=== PATIENT | female | born 1935 | race Caucasian/White ===

== ENCOUNTER 2016-05-13 16:03 | Inpatient (IN) | payer MEDICARE, BC ==
[2016-05-13] MEDS ORDERED: ALBUTEROL NEBULIZED 2.5 MG/3 ML INHALATION PRN (22:19)
[2016-05-13] MEDS ORDERED: ACETAMINOPHEN TAB 500 MG TAB PO PRN (22:19)
[2016-05-13] MEDS ORDERED: ONDANSETRON 4 MG TAB PO PRN (22:19)
[2016-05-13] MEDS ORDERED: MAGNESIUM HYDROXIDE 2,400 MG/10 ML CUP PO PRN (22:19)
[2016-05-13] MEDS ORDERED: BISACODYL 10 MG SUPP RECTAL PRN (22:19)
[2016-05-13] MEDS ORDERED: POLYETHYLENE GLYCOL 3350 17 GM POWD.PACK PO PRN (22:19)
[2016-05-13 23:16] LABS: Prothrombin Time 89.6 sec (9.0-12.0)
[2016-05-13 23:19] LABS: INR 8.6 (<1.1)
[2016-05-14] MEDS ORDERED: ALBUTEROL NEBULIZED 2.5 MG/3 ML INHALATION PRN (00:48)
[2016-05-14 04:19] LABS: Appearance,Urine Cloudy (Clear); Bacteria,Urine Occasional /hpf; Bilirubin,Urine Negative (Negative); Glucose,Urine (UA) Negative (Negative); Ketones,Urine Negative (Negative); Leukocyte Esterase,Urine Large (Negative); Mucus,Urine Rare /hpf; Nitrite,Urine Negative (Negative); PH, Urine 5.5 (5.0-8.0); Particle Count 4052; Protein,Urine 1+ (Negative); RBC,Urine 30 /hpf (0-5); Specific Gravity,Urine 1.017 (1.001-1.035); UA Billing (MACRO vs. MICRO) MICRO; Urobilinogen,Urine <2.0 mg/dL (<2.0); WBC,Urine 134 /hpf (0-5)
[2016-05-14 06:34] LABS: Anisocytosis Slight; Basophils % (A) 0 %; CH 23.5; CHCM 30.3; Eosinophils # (A) 0.4 k/uL (0-0.7); Eosinophils % (A) 5 %; HCT 28.4 % (34.0-46.0); HDW 2.85; HGB 8.3 gm/dL (11.4-16.0); Hypochromasia Marked; Luc # (Auto) 0.15; Luc % (Auto) 2; Lymphocytes # (A) 0.5 k/uL (1.0-4.8); Lymphocytes % (A) 7 %; MCH 22.8 pg (25.0-35.0); MCHC 29.4 g/dL (31.0-37.0); MCV 77.8 fL (80.0-100.0); Mean Platelet Volume 7.4; Microcytosis Slight; Monocytes # (A) 0.7 k/uL (0-1.0); Monocytes % (A) 9 %; Neutrophils # (A) 5.8 k/uL (1.3-7.7); Neutrophils % (A) 77 %; RBC 3.65 m/uL (3.80-5.40); RDW 16.6 % (11.5-15.5); WBC 7.5 k/uL (3.8-10.6); WBC (Perox) 7.07
[2016-05-14 06:45] LABS: Anion Gap 12 mmol/L; Blood Urea Nitrogen 23 mg/dL (7-17); Calcium 9.4 mg/dL (8.4-10.2); Carbon Dioxide 22 mmol/L (22-30); Chloride 107 mmol/L (98-107); Glucose 93 mg/dL (74-99); Non-African American GFR(MDRD) >60 (>60 ml/min/1.73 sqM); Potassium 4.2 mmol/L (3.5-5.1); Sodium 141 mmol/L (137-145)
[2016-05-14 06:48] LABS: INR 9.4 (<1.1)
[2016-05-14] MEDS: amLODIPine 5 MG TAB PO SCH (06:58)
[2016-05-14] MEDS: SODIUM CHLORIDE 0.9% 1,000 ML IV SCH ×3 (06:58→23:13)
[2016-05-14] MEDS: LEVOTHYROXINE 100 MCG TAB PO SCH (06:58)
[2016-05-14] MEDS ORDERED: IPRATROPIUM-ALBUTEROL 3 ML NEB INHALATION SCH (09:00)
--- NOTE | 2016-05-14 09:04 | XR ---
EXAMINATION TYPE: XR chest 2V DATE OF EXAM: 05/14/2016 8:50 AM COMPARISON: Prior chest x-ray June 09, 2015 HISTORY: Cough and pneumonia. TECHNIQUE: Frontal and lateral views of the chest are obtained. FINDINGS: Low lung volumes are redemonstrated. Retrocardiac opacity consistent with large hiatal her awa or intrathoracic stomach is again seen. Cardiac silhouette size is stable and felt enlarged with atherosclerotic thoracic aorta. There is interval improvement in right basilar opacity. Some persiste nt left basilar atelectasis and/or infiltrate is difficult to exclude. No large pleural effusion or p neumothorax is seen bilaterally. Osseous structures are demineralized. Exaggerated thoracic kyphosis is noted. IMPRESSION: Low lung volumes and cardiomegaly with large hiatal hernia all redemonstrated, some acut e left basilar atelectasis and/or infiltrate is difficult to exclude.
[2016-05-14] MEDS: IPRATROPIUM-ALBUTEROL 3 ML NEB INHALATION SCH ×2 (09:29→20:26)
[2016-05-14] MEDS ORDERED: PHYTONADIONE 5 MG in SODIUM CHLORIDE 0.9% 50 ML IVPB STA (09:48)
[2016-05-14] MEDS ORDERED: PIPERACILLIN-TAZOBACTAM 3.375 GM in DEXTROSE/WATER 1 50ML.BAG IVPB SCH (10:00)
[2016-05-14] MEDS: LACTOBACILLUS ACIDOPH & BULGAR 1 EACH PACKET PO SCH ×2 (10:08→16:47)
[2016-05-14] MEDS: CARBIDOPA-LEVODOPA 25-100 MG 1 EACH TAB PO SCH ×3 (10:08→21:06)
[2016-05-14] MEDS: MEGESTROL 400 MG/10 ML CUP PO SCH ×2 (10:09→16:47)
[2016-05-14] MEDS: MAGNESIUM OXIDE 400 MG TAB PO SCH (10:09)
[2016-05-14] MEDS: PREGABALIN 50 MG CAP PO SCH ×2 (10:11→21:06)
[2016-05-14] MEDS: SENNOSIDES-DOCUSATE SODIUM 1 EACH TAB PO SCH ×2 (10:11→16:50)
[2016-05-14] MEDS: HYDROcodone/APAP 10-325MG 1 EACH TAB PO PRN ×3 (10:12→21:07)
[2016-05-14] MEDS: POTASSIUM CHLORIDE ER 20 MEQ TAB.ER PO SCH ×2 (10:55→21:06)
[2016-05-14] MEDS: ERTAPENEM 1 GM in SODIUM CHLORIDE 0.9% 50 ML IVPB SCH (11:33)
--- NOTE | 2016-05-14 12:50 | P.CNPUL ---
History of Present Illness Consult date: 05/14/16 Requesting physician: Carolee Tavares Reason for consult: pneumonia Chief complaint: Unknown, patient does not know why she is in the hospital. History of present illness: This is a 80-year-old female with history of multiple medical problems including hypertension, hypothyroidism, Parkinson's disease, polyneuropathy, history of breast cancer and previous right mastectomy, patient was at a resident at [facility], and apparently she was sent to [place] ER with mostly elevated INR/Coumadin related coagulopathy, and she was also noted to have a urinary tract infection and possible sepsis. Apparently the patient was having fevers, upon evaluation in the ER in [place], patient was noted to have urinary tract infection, left lower lobe pneumonia, she was also febrile, her urine revealed evidence of pyuria and bacteriuria, hence arrangements were made for the patient be transferred to [facility]. Patient is a poor historian, however when I asked her about her chief complaint and whether she is complaining of anything, patient felt that she was fine. She had no specific complaints whatsoever. And she had no idea why she was brought to [facility]. Review of Systems ROS unobtainable: due to mental status Past Medical History Past Medical History: Cancer, GERD/Reflux, Hyperlipidemia, Hypertension, Memory Impairment, Neurologic Disorder, Osteoarthritis (OA), Pneumonia, Renal Disease, Skin Disorder, Thyroid Disorder Additional Past Medical History / Comment(s): UTI's sepsis,FEVER, SIRS, HOSPITAL ACQUIRED PNE, SLIGHT MEMORY IMPAIRMENT, R breast ca WITH R MASTECTOMY , DIVERTICULITIS, PNEUMONIA, NECK PAIN, BACK PAIN, RLS ,POLYNEUROPATHY, DJD, MYALGIA AND MYOSITIS. KYPHOSIS, R FOOT DROP.VISION IN RT EYE WORSE THAN LT, sacral wound-wound vac, per [facility] paperwork listed parkinsons on problem list, occ constipation, past anemia. History of Any Multi-Drug Resistant Organisms: ESBL Date of last positivie culture/infection: 06/09/2015 MDRO Source:: urine Past Surgical History: Hernia Repair Additional Past Surgical History / Comment(s): R mastectomy IN 2008, PARTIAL COLECTOMY 2004, VENOUS STRIPPING, COLONOSCOPY, ,CATARACT EXTRACTION AND LENS IMPLANTS. Past Anesthesia/Blood Transfusion Reactions: No Reported Reaction Additional Past Anesthesia/Blood Transfusion Reaction / Comment(s): PT STATES SHE HAS NEVER RECIEVED BLOOD. Past Psychological History: No Psychological Hx Reported Additional Psychological History / Comment(s): pt currently at [facility]. STATES HER LEGS ARE WEAK. wouind vac to sacral wound. Smoking Status: Never smoker Past Alcohol Use History: None Reported Past Drug Use History: None Reported - Past Family History Father Family Medical History: Unable to Obtain Additional Family Medical History / Comment(s): PT STATES SHE NEVER KNEW HER FATHER. Mother Family Medical History: Diabetes Mellitus Medications and Allergies Home Medications Medication Instructions Recorded Confirmed Type Levothyroxine Sodium [Synthroid] 100 mcg PO DAILY@0600 03/16/14 05/13/16 History Sennosides-Docusate Sodium 1 tab PO BID@0900,1700 02/27/15 05/13/16 History [Senokot-S] Pregabalin [Lyrica] 50 mg PO BID@0900,2100 05/21/15 05/13/16 History Ipratropium-Albuterol Nebulize 3 ml INHALATION RT-BID@0900,1700 06/08/15 History [Duoneb 0.5 mg-3 mg/3 ml Soln] Lactobacillus Capsule 1 cap PO BID@0900,1700 06/08/15 05/13/16 History Acetaminophen Tab [Tylenol Tab] 500 mg PO Q6H PRN 05/13/16 05/13/16 History Albuterol Nebulized [Ventolin 2.5 mg INHALATION RT-Q8H PRN 05/13/16 05/13/16 History Nebulized] Anastrozole [Arimidex] 1 mg PO DAILY@1300 05/13/16 05/13/16 History Bisacodyl [Dulcolax] 10 mg RECTAL DAILY PRN 05/13/16 05/13/16 History Carbidopa-Levodopa 25-100 mg 1 tab PO TID@0900,1300,209905/13/16 05/13/16 History [Sinemet 25-100] Citalopram Hydrobromide [CeleXA] 10 mg PO HS@209905/13/16 05/13/16 History HYDROcodone/APAP 10-325MG [[place] 1 tab PO TID@0600,1300,209905/13/16 05/13/16 History 10-325] Losartan Potassium 100 mg PO DAILY@1300 05/13/16 05/13/16 History Magnesium Hydroxide [Milk of 2,400 mg PO DAILY PRN 05/13/16 05/13/16 History Magnesia] Magnesium Oxide [Mag-Ox] 400 mg PO DAILY@0900 05/13/16 05/13/16 History Megestrol [Megace] 200 mg PO BID@0900,1700 05/13/16 05/13/16 History Metolazone [Zaroxolyn] 2.5 mg PO DAILY@1700 05/13/16 05/13/16 History Ondansetron [Zofran] 4 mg PO Q8H PRN 05/13/16 05/13/16 History Polyethylene Glycol 3350 [Miralax] 17 gm PO DAILY@0900 05/13/16 05/13/16 History Potassium Chloride ER [K-Dur 10] 20 meq PO BID@0900,2100 05/13/16 05/13/16 History Warfarin [Coumadin] 3 mg PO HS@2100 05/13/16 05/13/16 History amLODIPine [Norvasc] 5 mg PO DAILY@0600 05/13/16 05/13/16 History Allergies Allergy/AdvReac Type Severity Reaction Status Date / Time No Known Allergies Allergy Verified 05/13/16 20:20 Physical Exam Vitals: Vital Signs Temp Pulse Pulse Resp BP Pulse Ox 05/14/16 11:15 100.6 F H 103 H 20 140/76 97 05/14/16 10:56 101.4 F H 105 H 148/77 97 05/14/16 09:40 88 05/14/16 09:30 88 05/14/16 09:00 22 05/14/16 08:45 95 22 05/14/16 08:00 99.5 F 95 22 146/70 97 05/14/16 05:51 82 18 97 05/14/16 00:00 84 18 125/63 97 05/13/16 20:00 98.7 F 84 18 104/55 98 Intake and Output 05/13/16 05/14/16 05/14/16 22:59 06:59 14:59 Intake Total 850 Output Total 110 600 Balance -110 250 Intake: IV 850 Phytonadione 5 mg In 50 Sodium Chloride 0.9% 50 ml @ 100 mls/hr IVPB ONCE STA Rx#:[id number] Sodium Chloride 0.9% 1, 800 000 ml @ 75 mls/hr IV . [id number] [facility] Rx#:[id number] Output: Urine 110 600 Other: Voiding Method Indwelling Catheter Indwelling Catheter Indwelling Catheter Weight 64.5 kg 62 kg 62 kg Patient Weight 05/15/16 06:59 Weight 62 kg Physical Exam: Revealed a 80-year-old female in no distress HEENT:[Neck is supple.] [No neck masses.] [No thyromegaly.] [No JVD.] Chest: [Minimal crackles at the bases bilaterally more so at the left base] Cardiac Exam: [Normal S1 and S2, no S3 gallop, no murmur.] Abdomen: [Soft, nontender, no megaly, no rebound, no guarding, normal bowel sounds.] Extremities: [No clubbing, no edema, no cyanosis.] Patient has a stage III decubitus ulcer in the right sacroiliac area. Neurological Exam: Confused otherwise no focal neurologic deficit Results - Laboratory Findings CBC and BMP: 05/14/16 06:04 05/14/16 06:04 PT/INR, D-dimer PT 99.0 sec (9.0-12.0) H 05/14/16 06:04 INR 9.4 (<1.1) H* 05/14/16 06:04 Abnormal lab findings: Abnormal Labs 05/13/16 05/14/16 05/14/16 22:40 02:39 06:04 RBC 3.65 L Hgb 8.3 L Hct 28.4 L MCV 77.8 L MCH 22.8 L MCHC 29.4 L RDW 16.6 H Lymphocytes # 0.5 L PT 89.6 H INR 8.6 H* BUN Urine Appearance Cloudy H Urine Protein 1+ H Urine Blood Moderate H Ur Leukocyte Esterase Large H Urine RBC 30 H Urine WBC 134 H Urine Bacteria Occasional H Urine Mucus Rare H 05/14/16 05/14/16 06:04 06:04 RBC Hgb Hct MCV MCH MCHC RDW Lymphocytes # PT 99.0 H INR 9.4 H* BUN 23 H Urine Appearance Urine Protein Urine Blood Ur Leukocyte Esterase Urine RBC Urine WBC Urine Bacteria Urine Mucus - Diagnostic Findings Chest x-ray: image reviewed (Evidence of left lower lobe atelectasis, possible pneumonia, and evidence of a hiatal hernia.) Assessment and Plan Plan: Impression: 1 bi basilar pneumonia, possible gram-negative, and possible sepsis. 2 acute urinary tract infection, possible sepsis 3 history of multiple comorbidities including hypertension, arcus disease, history of breast cancer and previous right mastectomy, history of hypothyroidism, polyneuropathy, hiatal hernia, medical debility and generalized weakness and history of osteoporosis kyphosis scoliosis and history of chronic sacral iliac decubitus ulcer. Recommendation: Agree with the present course of treatment including updrafts, ertapenem, await final report on her cultures including blood and urine cultures. We'll continue to follow. Time with Patient: Greater than 30
--- NOTE | 2016-05-14 13:06 | P.HPIM ---
History of Present Illness H&P Date: 05/14/16 Chief Complaint: Mental status changes This is a 80-year-old female patient of Dr. Mohr with a previous medical history significant for hypertension and hypertensive cardiovascular disease, hyperlipidemia, hypothyroidism, parkinsonism, polyneuropathy, history of breast cancer status post right mastectomy. She is currently residing at [facility]. She was sent in to the hospital for evaluation of lethargy and weakness. She had a urinalysis done that was leukoesterase large and bacteria moderate. She was given ciprofloxacin and ceftriaxone and transferred to [facility]. Patient was initially admitted under the care of Dr. riveraion has been transferred to our service. Patient is also noted to have stage III decubitus ulcer in the right buttocks area with tunneling that was present on admission. INR is at 9.4 and patient will be ordered vitamin K. Lactic acid 1.1. Temperature max is 101.4. Previous urine culture was positive for E. coli, ESBL and patient has been started on ertapenem and consult with Dr. Ramirez. Review of Systems All systems: negative Constitutional: Reports chills, Reports fatigue, Reports fever, Reports lethargy , Reports poor appetite, Reports weakness Eyes: denies blurred vision, denies pain Ears, nose, mouth and throat: Denies headache, Denies sore throat Cardiovascular: Denies chest pain, Denies shortness of breath Respiratory: Denies cough Gastrointestinal: Denies abdominal pain, Denies diarrhea, Denies nausea, Denies vomiting Genitourinary: Denies dysuria, Denies hematuria Musculoskeletal: Denies myalgias Integumentary: Denies pruritus, Denies rash Neurological: Reports confusion, Denies numbness, Denies weakness Psychiatric: Denies anxiety, Denies depression Endocrine: Denies fatigue, Denies weight change Past Medical History Past Medical History: Cancer, GERD/Reflux, Hyperlipidemia, Hypertension, Memory Impairment, Neurologic Disorder, Osteoarthritis (OA), Pneumonia, Renal Disease, Skin Disorder, Thyroid Disorder Additional Past Medical History / Comment(s): UTI's sepsis,FEVER, SIRS, HOSPITAL ACQUIRED PNE, SLIGHT MEMORY IMPAIRMENT, R breast ca WITH R MASTECTOMY , DIVERTICULITIS, PNEUMONIA, NECK PAIN, BACK PAIN, RLS ,POLYNEUROPATHY, DJD, MYALGIA AND MYOSITIS. KYPHOSIS, R FOOT DROP.VISION IN RT EYE WORSE THAN LT, sacral wound-wound vac, per f paperwork listed parkinsons on problem list, occ constipation, past anemia. History of Any Multi-Drug Resistant Organisms: ESBL Date of last positivie culture/infection: 06/09/2015 MDRO Source:: urine Past Surgical History: Hernia Repair Additional Past Surgical History / Comment(s): R mastectomy IN 2008, PARTIAL COLECTOMY 2004, VENOUS STRIPPING, COLONOSCOPY, ,CATARACT EXTRACTION AND LENS IMPLANTS. Past Anesthesia/Blood Transfusion Reactions: No Reported Reaction Additional Past Anesthesia/Blood Transfusion Reaction / Comment(s): PT STATES SHE HAS NEVER RECIEVED BLOOD. Past Psychological History: No Psychological Hx Reported Additional Psychological History / Comment(s): pt currently at [facility]. STATES HER LEGS ARE WEAK. wouind vac to sacral wound. Smoking Status: Never smoker Past Alcohol Use History: None Reported Past Drug Use History: None Reported - Past Family History Father Family Medical History: Unable to Obtain Additional Family Medical History / Comment(s): PT STATES SHE NEVER KNEW HER FATHER. Mother Family Medical History: Diabetes Mellitus Medications and Allergies Home Medications Medication Instructions Recorded Confirmed Type Levothyroxine Sodium [Synthroid] 100 mcg PO DAILY@0600 03/16/14 05/13/16 History Sennosides-Docusate Sodium 1 tab PO BID@0900,1700 02/27/15 05/13/16 History [Senokot-S] Pregabalin [Lyrica] 50 mg PO BID@0900,2100 05/21/15 05/13/16 History Ipratropium-Albuterol Nebulize 3 ml INHALATION RT-BID@0900,1700 06/08/15 History [Duoneb 0.5 mg-3 mg/3 ml Soln] Lactobacillus Capsule 1 cap PO BID@0900,1700 06/08/15 05/13/16 History Acetaminophen Tab [Tylenol Tab] 500 mg PO Q6H PRN 05/13/16 05/13/16 History Albuterol Nebulized [Ventolin 2.5 mg INHALATION RT-Q8H PRN 05/13/16 05/13/16 History Nebulized] Anastrozole [Arimidex] 1 mg PO DAILY@1300 05/13/16 05/13/16 History Bisacodyl [Dulcolax] 10 mg RECTAL DAILY PRN 05/13/16 05/13/16 History Carbidopa-Levodopa 25-100 mg 1 tab PO TID@0900,1300,209905/13/16 05/13/16 History [Sinemet 25-100] Citalopram Hydrobromide [CeleXA] 10 mg PO HS@209905/13/16 05/13/16 History HYDROcodone/APAP 10-325MG [[place] 1 tab PO TID@0600,1300,209905/13/16 05/13/16 History 10-325] Losartan Potassium 100 mg PO DAILY@1300 05/13/16 05/13/16 History Magnesium Hydroxide [Milk of 2,400 mg PO DAILY PRN 05/13/16 05/13/16 History Magnesia] Magnesium Oxide [Mag-Ox] 400 mg PO DAILY@0900 05/13/16 05/13/16 History Megestrol [Megace] 200 mg PO BID@0900,1700 05/13/16 05/13/16 History Metolazone [Zaroxolyn] 2.5 mg PO DAILY@1700 05/13/16 05/13/16 History Ondansetron [Zofran] 4 mg PO Q8H PRN 05/13/16 05/13/16 History Polyethylene Glycol 3350 [Miralax] 17 gm PO DAILY@0900 05/13/16 05/13/16 History Potassium Chloride ER [K-Dur 10] 20 meq PO BID@0900,2100 05/13/16 05/13/16 History Warfarin [Coumadin] 3 mg PO HS@209905/13/16 05/13/16 History amLODIPine [Norvasc] 5 mg PO DAILY@0600 05/13/16 05/13/16 History Allergies Allergy/AdvReac Type Severity Reaction Status Date / Time No Known Allergies Allergy Verified 05/13/16 20:20 Physical Exam Vitals: Vital Signs Temp Pulse Pulse Resp BP Pulse Ox 05/14/16 10:56 101.4 F H 105 H 148/77 97 05/14/16 09:40 88 05/14/16 09:30 88 05/14/16 09:00 22 05/14/16 08:00 99.5 F 95 22 146/70 97 05/14/16 05:51 82 18 97 05/14/16 00:00 84 18 125/63 97 05/13/16 20:00 98.7 F 84 18 104/55 98 Intake and Output 05/13/16 05/14/16 05/14/16 22:59 06:59 14:59 Output Total 110 Balance -110 Output: Urine 110 Other: Voiding Method Indwelling Catheter Indwelling Catheter Indwelling Catheter Weight 64.5 kg 62 kg 62 kg Patient Weight 05/15/16 06:59 Weight 62 kg General appearance: average body habitus, mild distress - EENT Eyes: Reports anicteric sclerae, Reports EOMI, Reports PERRLA, Reports normal apperance, Denies photophobia, Denies ptosis ENT: Reports hard of hearing, Reports NA/AT, Reports normal oropharynx, Denies thrush, Denies tonsillar exudates, Denies tonsillar swelling Ears: bilateral: normal, negative: bulging - Neck Neck: Reports normal ROM, Reports rigidity, Denies lymphadenopathy, Denies stridor, Denies thyromegaly Carotids: bilateral: upstroke delayed Thyroid: bilateral: normal size - Respiratory Respiratory: bilateral: diminished, dullness, rhonchi, negative: wheezing, prolonged expiration - Cardiovascular Rhythm: regular Heart sounds: normal: S1, S2 Abnormal Heart Sounds: Reports systolic murmur, Denies rub, Denies S3 Gallop, Denies S4 Gallop, Denies click - Gastrointestinal General gastrointestinal: Reports normal bowel sounds, Reports soft, Denies splenomegaly, Denies tenderness, Denies umbilical hernia, Denies ventral hernia - Integumentary Integumentary: Reports normal, Reports normal turgor, Denies rash, Denies ulcer - Neurologic Neurologic: CNII-XII intact - Musculoskeletal Musculoskeletal: Reports generalized weakness, Reports strength equal bilaterally - Psychiatric Psychiatric: Reports A&O x's 3, Reports appropriate affect, Reports intact judgment & insight Results CBC & Chem 7: 05/14/16 06:04 05/14/16 06:04 Labs: Abnormal Lab Results - Last 24 Hours (Table) 05/13/16 05/14/16 05/14/16 Range/Units 22:40 02:39 06:04 RBC 3.65 L (3.80-5.40) m/uL Hgb 8.3 L (11.4-16.0) gm/dL Hct 28.4 L (34.0-46.0) % MCV 77.8 L (80.0-100.0) fL MCH 22.8 L (25.0-35.0) pg MCHC 29.4 L (31.0-37.0) g/dL RDW 16.6 H (11.5-15.5) % Lymphocytes # 0.5 L (1.0-4.8) k/uL PT 89.6 H (9.0-12.0) sec INR 8.6 H* (<1.1) BUN (7-17) mg/dL Urine Appearance Cloudy H (Clear) Urine Protein 1+ H (Negative) Urine Blood Moderate H (Negative) Ur Leukocyte Esterase Large H (Negative) Urine RBC 30 H (0-5) /hpf Urine WBC 134 H (0-5) /hpf Urine Bacteria Occasional H (None) /hpf Urine Mucus Rare H (None) /hpf 05/14/16 05/14/16 Range/Units 06:04 06:04 RBC (3.80-5.40) m/uL Hgb (11.4-16.0) gm/dL Hct (34.0-46.0) % MCV (80.0-100.0) fL MCH (25.0-35.0) pg MCHC (31.0-37.0) g/dL RDW (11.5-15.5) % Lymphocytes # (1.0-4.8) k/uL PT 99.0 H (9.0-12.0) sec INR 9.4 H* (<1.1) BUN 23 H (7-17) mg/dL Urine Appearance (Clear) Urine Protein (Negative) Urine Blood (Negative) Ur Leukocyte Esterase (Negative) Urine RBC (0-5) /hpf Urine WBC (0-5) /hpf Urine Bacteria (None) /hpf Urine Mucus (None) /hpf Thrombosis Risk Factor Assmnt - DVT/VTE Prophylaxis DVT/VTE Prophylaxis: Pharmacologic Prophylaxis ordered - Choose All That Apply Any of the Below Risk Factors Present?: Yes Each Factor Represents 1 point: Sepsis (< 1month) Other Risk Factors: Yes Each Risk Factor Represents 2 Points: Malignancy Each Risk Factor Represents 3 Points: Age 75 years or older Other congenital or acquired thrombophilia - If yes, enter type in comment: No Thrombosis Risk Factor Assessment Total Risk Factor Score: 6 Thrombosis Risk Factor Assessment Level: High Risk Assessment and Plan Plan: 1. Sepsis and urinary tract infection presenting with weakness and lethargy, fever, coagulopathy and metabolic encephalopathy. Patient has been started on ertapenem. Consult with Dr. Ramirez. Await urine culture report. Blood culture has status received. 2. Coagulopathy secondary to combination of Coumadin and sepsis. Patient is status post vitamin K. Recheck INR this afternoon. Coumadin on hold. 3. Anemia of chronic disease. Currently stable. 4. Hypertension and hypertensive cardiovascular disease. Continue losartan 100 mg daily, Norvasc 5 mg daily. 5. Parkinsonism. Continue Sinemet one 3 times daily. 6. History of breast cancer status post right mastectomy. Continue Arimidex 1 mg orally once every day. 7. Hypothyroidism. Continue Synthroid 100 g orally once every day. 8. Bilateral polyneuropathy. Continue Lyrica 50 mg orally twice every day. 9. Osteoporosis/kyphosis with scoliosis. Start [place] 7.5/325 mg 1 tablet every 6 hours as needed. 11. Stage III decubitus ulcer on the right buttocks with tunneling, present on admission. Consult with Dr. Ramirez. 12. DVT prophylaxis. Coumadin on hold. 13. GI prophylaxis. Continue Pepcid. Patient will be admitted to the hospital for a minimum 3 night stay. Discharge plan: Return to [facility] Impression and plan of care have been directed as dictated by the signing physician. Selene Chan nurse practitioner acting as scribe for signing physician. Time with Patient: Greater than 30
--- NOTE | 2016-05-14 13:19 | P.CONS ---
History of Present Illness - Reason for Consult Consult date: 05/14/16 UTI, Sepsis - History of Present Illness This is a 80-year-old female currently residing at [facility]. She was sent in to the hospital for evaluation of lethargy and weakness. She had a urinalysis done that was leukoesterase large and bacteria moderate. Chest x-ray showed left lower lobe pneumonia. CAT scan of the brain was negative. She was given ciprofloxacin and ceftriaxone and transferred to [facility]. Patient was initially admitted under the care of Dr. riveraion has been transferred to our service. Patient is also noted to have stage III decubitus ulcer in the right buttocks area with tunneling that was present on admission. INR is at 9.4 and patient received vitamin K. Lactic acid 1.1. Temperature max is 101.4. Previous urine culture was positive for E. coli, ESBL and patient on ertapenem. Dr. Sutton is on consult. Review of Systems All systems: negative Constitutional: Reports chills, Reports fatigue, Reports fever, Reports lethargy , Reports weakness Eyes: denies blurred vision, denies pain Ears, nose, mouth and throat: Denies headache, Denies sore throat Cardiovascular: Denies chest pain, Denies shortness of breath Respiratory: Denies cough Gastrointestinal: Denies abdominal pain, Denies diarrhea, Denies nausea, Denies vomiting Genitourinary: Denies dysuria, Denies hematuria Musculoskeletal: Denies myalgias Integumentary: Denies pruritus, Denies rash Neurological: Denies numbness, Denies weakness Psychiatric: Reports confusion, Denies anxiety, Denies depression Endocrine: Denies fatigue, Denies weight change Past Medical History Past Medical History: Cancer, GERD/Reflux, Hyperlipidemia, Hypertension, Memory Impairment, Neurologic Disorder, Osteoarthritis (OA), Pneumonia, Renal Disease, Skin Disorder, Thyroid Disorder Additional Past Medical History / Comment(s): UTI's sepsis,FEVER, SIRS, HOSPITAL ACQUIRED PNE, SLIGHT MEMORY IMPAIRMENT, R breast ca WITH R MASTECTOMY , DIVERTICULITIS, PNEUMONIA, NECK PAIN, BACK PAIN, RLS ,POLYNEUROPATHY, DJD, MYALGIA AND MYOSITIS. KYPHOSIS, R FOOT DROP.VISION IN RT EYE WORSE THAN LT, sacral wound-wound vac, per [facility] paperwork listed parkinsons on problem list, occ constipation, past anemia. History of Any Multi-Drug Resistant Organisms: ESBL Year Discovered:: 06/09/2015 MDRO Source:: urine Past Surgical History: Hernia Repair Additional Past Surgical History / Comment(s): R mastectomy IN 2008, PARTIAL COLECTOMY 2004, VENOUS STRIPPING, COLONOSCOPY, ,CATARACT EXTRACTION AND LENS IMPLANTS. Past Anesthesia/Blood Transfusion Reactions: No Reported Reaction Additional Past Anesthesia/Blood Transfusion Reaction / Comm: PT STATES SHE HAS NEVER RECIEVED BLOOD. Past Psychological History: No Psychological Hx Reported Additional Psychological History / Comment(s): [facility] STATES HER LEGS ARE WEAK. wouind vac to sacral wound. Smoking Status: Never smoker Past Alcohol Use History: None Reported Past Drug Use History: None Reported - Past Family History Father Family Medical History: Unable to Obtain Additional Family Medical History / Comment(s): PT STATES SHE NEVER KNEW HER FATHER. Mother Family Medical History: Diabetes Mellitus Medications and Allergies Home Medications Medication Instructions Recorded Confirmed Type Levothyroxine Sodium [Synthroid] 100 mcg PO DAILY@0600 03/16/14 05/13/16 History Sennosides-Docusate Sodium 1 tab PO BID@0900,1700 02/27/15 05/13/16 History [Senokot-S] Pregabalin [Lyrica] 50 mg PO BID@0900,2100 05/21/15 05/13/16 History Ipratropium-Albuterol Nebulize 3 ml INHALATION RT-BID@0900,1700 06/08/15 History [Duoneb 0.5 mg-3 mg/3 ml Soln] Lactobacillus Capsule 1 cap PO BID@0900,1700 06/08/15 05/13/16 History Acetaminophen Tab [Tylenol Tab] 500 mg PO Q6H PRN 05/13/16 05/13/16 History Albuterol Nebulized [Ventolin 2.5 mg INHALATION RT-Q8H PRN 05/13/16 05/13/16 History Nebulized] Anastrozole [Arimidex] 1 mg PO DAILY@1300 05/13/16 05/13/16 History Bisacodyl [Dulcolax] 10 mg RECTAL DAILY PRN 05/13/16 05/13/16 History Carbidopa-Levodopa 25-100 mg 1 tab PO TID@0900,1300,2100 05/13/16 05/13/16 History [Sinemet 25-100] Citalopram Hydrobromide [CeleXA] 10 mg PO HS@2100 05/13/16 05/13/16 History HYDROcodone/APAP 10-325MG [[place] 1 tab PO TID@0600,1300,2100 05/13/16 05/13/16 History 10-325] Losartan Potassium 100 mg PO DAILY@1300 05/13/16 05/13/16 History Magnesium Hydroxide [Milk of 2,400 mg PO DAILY PRN 05/13/16 05/13/16 History Magnesia] Magnesium Oxide [Mag-Ox] 400 mg PO DAILY@0900 05/13/16 05/13/16 History Megestrol [Megace] 200 mg PO BID@0900,1700 05/13/16 05/13/16 History Metolazone [Zaroxolyn] 2.5 mg PO DAILY@1700 05/13/16 05/13/16 History Ondansetron [Zofran] 4 mg PO Q8H PRN 05/13/16 05/13/16 History Polyethylene Glycol 3350 [Miralax] 17 gm PO DAILY@0900 05/13/16 05/13/16 History Potassium Chloride ER [K-Dur 10] 20 meq PO BID@0900,2100 05/13/16 05/13/16 History Warfarin [Coumadin] 3 mg PO HS@2100 05/13/16 05/13/16 History amLODIPine [Norvasc] 5 mg PO DAILY@0600 05/13/16 05/13/16 History Allergies Allergy/AdvReac Type Severity Reaction Status Date / Time No Known Allergies Allergy Verified 05/13/16 20:20 Physical Exam Vitals: Vital Signs Temp Pulse Pulse Resp BP Pulse Ox 05/14/16 10:56 101.4 F H 105 H 148/77 97 05/14/16 09:40 88 05/14/16 09:30 88 05/14/16 09:00 22 05/14/16 08:00 99.5 F 95 22 146/70 97 05/14/16 05:51 82 18 97 05/14/16 00:00 84 18 125/63 97 05/13/16 20:00 98.7 F 84 18 104/55 98 Intake and Output 05/13/16 05/14/16 05/14/16 22:59 06:59 14:59 Output Total 110 Balance -110 Output: Urine 110 Other: Voiding Method Indwelling Catheter Indwelling Catheter Indwelling Catheter Weight 64.5 kg 62 kg 62 kg Patient Weight 05/15/16 06:59 Weight 62 kg Gen: This is a 80-year-old female. She appears to be in no acute distress.. HEENT: Head is atraumatic, normocephalic. Pupils equal, round. Sclerae is anicteric. NECK: Supple. No JVD. No lymphadenopathy. No thyromegaly. LUNGS: Crackles in the bases. No intercostal retractions. HEART: Regular rate and rhythm. Systolic murmur. ABDOMEN: Soft. Bowel sounds are present. No masses. No tenderness. Oneil catheter in place. SKIN: Stage III possible stage IV decubitus ulcer right buttocks/back area. EXTREMITIES: No pedal edema. No calf tenderness. NEUROLOGICAL: Patient is awake, alert and oriented x2 with mild confusion. No focal neural deficits. Results Results: Laboratory Results WBC 7.5 k/uL (3.8-10.6) 05/14/16 06:04 RBC 3.65 m/uL (3.80-5.40) L 05/14/16 06:04 Hgb 8.3 gm/dL (11.4-16.0) L 05/14/16 06:04 Hct 28.4 % (34.0-46.0) L 05/14/16 06:04 MCV 77.8 fL (80.0-100.0) L 05/14/16 06:04 MCH 22.8 pg (25.0-35.0) L 05/14/16 06:04 MCHC 29.4 g/dL (31.0-37.0) L 05/14/16 06:04 RDW 16.6 % (11.5-15.5) H 05/14/16 06:04 Plt Count 431 k/uL (150-450) 05/14/16 06:04 Neutrophils % 77 % 05/14/16 06:04 Lymphocytes % 7 % 05/14/16 06:04 Monocytes % 9 % 05/14/16 06:04 Eosinophils % 5 % 05/14/16 06:04 Basophils % 0 % 05/14/16 06:04 Neutrophils # 5.8 k/uL (1.3-7.7) 05/14/16 06:04 Lymphocytes # 0.5 k/uL (1.0-4.8) L 05/14/16 06:04 Monocytes # 0.7 k/uL (0-1.0) 05/14/16 06:04 Eosinophils # 0.4 k/uL (0-0.7) 05/14/16 06:04 Basophils # 0.0 k/uL (0-0.2) 05/14/16 06:04 Hypochromasia Marked 05/14/16 06:04 Anisocytosis Slight 05/14/16 06:04 Microcytosis Slight 05/14/16 06:04 PT 99.0 sec (9.0-12.0) H 05/14/16 06:04 INR 9.4 (<1.1) H* 05/14/16 06:04 Sodium 141 mmol/L (137-145) 05/14/16 06:04 Potassium 4.2 mmol/L (3.5-5.1) 05/14/16 06:04 Chloride 107 mmol/L (98-107) 05/14/16 06:04 Carbon Dioxide 22 mmol/L (22-30) 05/14/16 06:04 Anion Gap 12 mmol/L 05/14/16 06:04 BUN 23 mg/dL (7-17) H 05/14/16 06:04 Creatinine 0.70 mg/dL (0.52-1.04) 05/14/16 06:04 Est GFR (MDRD) Af Amer >60 (>60 ml/min/1.73 sqM) 05/14/16 06:04 Est GFR (MDRD) Non-Af >60 (>60 ml/min/1.73 sqM) 05/14/16 06:04 Glucose 93 mg/dL (74-99) 05/14/16 06:04 Plasma Lactic Acid [place] 1.1 mmol/L (0.7-2.0) 05/14/16 11:23 Calcium 9.4 mg/dL (8.4-10.2) 05/14/16 06:04 Magnesium 1.8 mg/dL (1.6-2.3) 05/14/16 06:04 Urine Color Yellow 05/14/16 02:39 Urine Appearance Cloudy (Clear) H 05/14/16 02:39 Urine pH 5.5 (5.0-8.0) 05/14/16 02:39 Ur Specific [place] 1.017 (1.001-1.035) 05/14/16 02:39 Urine Protein 1+ (Negative) H 05/14/16 02:39 Urine Glucose (UA) Negative (Negative) 05/14/16 02:39 Urine Ketones Negative (Negative) 05/14/16 02:39 Urine Blood Moderate (Negative) H 05/14/16 02:39 Urine Nitrate Negative (Negative) 05/14/16 02:39 Urine Bilirubin Negative (Negative) 05/14/16 02:39 Urine Urobilinogen <2.0 mg/dL (<2.0) 05/14/16 02:39 Ur Leukocyte Esterase Large (Negative) H 05/14/16 02:39 Urine RBC 30 /hpf (0-5) H 05/14/16 02:39 Urine WBC 134 /hpf (0-5) H 05/14/16 02:39 Urine Bacteria Occasional /hpf (None) H 05/14/16 02:39 Urine Mucus Rare /hpf (None) H 05/14/16 02:39 CBC & Chem 7: 05/15/16 06:38 05/15/16 06:38 Labs: Abnormal Lab Results - Last 24 Hours (Table) 05/13/16 05/14/16 05/14/16 Range/Units 22:40 02:39 06:04 RBC 3.65 L (3.80-5.40) m/uL Hgb 8.3 L (11.4-16.0) gm/dL Hct 28.4 L (34.0-46.0) % MCV 77.8 L (80.0-100.0) fL MCH 22.8 L (25.0-35.0) pg MCHC 29.4 L (31.0-37.0) g/dL RDW 16.6 H (11.5-15.5) % Lymphocytes # 0.5 L (1.0-4.8) k/uL PT 89.6 H (9.0-12.0) sec INR 8.6 H* (<1.1) BUN (7-17) mg/dL Urine Appearance Cloudy H (Clear) Urine Protein 1+ H (Negative) Urine Blood Moderate H (Negative) Ur Leukocyte Esterase Large H (Negative) Urine RBC 30 H (0-5) /hpf Urine WBC 134 H (0-5) /hpf Urine Bacteria Occasional H (None) /hpf Urine Mucus Rare H (None) /hpf 05/14/16 05/14/16 Range/Units 06:04 06:04 RBC (3.80-5.40) m/uL Hgb (11.4-16.0) gm/dL Hct (34.0-46.0) % MCV (80.0-100.0) fL MCH (25.0-35.0) pg MCHC (31.0-37.0) g/dL RDW (11.5-15.5) % Lymphocytes # (1.0-4.8) k/uL PT 99.0 H (9.0-12.0) sec INR 9.4 H* (<1.1) BUN 23 H (7-17) mg/dL Urine Appearance (Clear) Urine Protein (Negative) Urine Blood (Negative) Ur Leukocyte Esterase (Negative) Urine RBC (0-5) /hpf Urine WBC (0-5) /hpf Urine Bacteria (None) /hpf Urine Mucus (None) /hpf Assessment and Plan Plan: This is a 80-year-old female who presented to the hospital signs of sepsis secondary to urinary tract infection and left lower lobe pneumonia. We do have previous urine culture with E. coli, ESBL. Patient is on ertapenem which will be continued. Regarding the stage III decubitus ulcer, local wound care will be addressed. Continue supportive care. Further recommendations as patient progresses. The above dictated assessment and findings were discussed with Dr. Ramirez. The impression and plan of care have been directed as dictated. Selene Chan nurse practitioner acting as scribe for Dr. Ramirez. Time with Patient: Greater than 30
[2016-05-14] MEDS: ANASTROZOLE 1 MG TAB PO SCH (13:58)
[2016-05-14 15:45] LABS: INR 2.2 (<1.1); Prothrombin Time 21.6 sec (9.0-12.0)
[2016-05-14] MEDS: LOSARTAN 50 MG TAB PO SCH (15:47)
[2016-05-14] MEDS: METOLAZONE 2.5 MG TAB PO SCH (16:47)
[2016-05-14] MEDS: CITALOPRAM HYDROBROMIDE 10 MG TAB PO SCH (21:06)
--- NOTE | 2016-05-14 21:19 | P.CON ---
Consult Note - . Consult date: 05/14/16 Assessment/Plan:: This is a 80-year-old female currently residing at [facility]. She was sent in to the hospital for evaluation of lethargy and weakness. She had a urinalysis done that was leukoesterase large and bacteria moderate. Chest x-ray showed left lower lobe pneumonia. CAT scan of the brain was negative. She was given ciprofloxacin and ceftriaxone and transferred to [facility]. Patient was initially admitted under the care of percussion has been transferred to our service. Patient is also noted to have stage III decubitus ulcer in the right buttocks area with tunneling that was present on admission. INR is at 9.4 and patient received vitamin K. Lactic acid 1.1. Temperature max is 101.4. Previous urine culture was positive for E. coli, ESBL and patient on ertapenem. Dr. Sutton is on consult. Please see the consult note as dictated by nurse practitioner Mrs. Selene Chan. It is noted patient has evidence of the extensive ulceration which is a pressure ulceration of her back. There is extensive tunneling is noted per the nursing photography and measurements. There is rae necrosis and older. With all this being present and wound VAC is not appropriate this time. Less for surgical consultation and debridements to the area. Once infection slough and improved she would then be a candidate for the negative pressure therapy system again. She is oriented air mattress overlay. We'll need to have nutritional status maximized. Pain control seems to be adequate at this point in time. Is evidence of the ESBL in her urine for which ertapenem is being utilized which is also adequate choice for the ulceration of her back especially since data so far does not indicate that she has evidence of MRSA. Culture further help direct antibiotic therapy. With her markedly elevated PT and INR is concerns that she was on antibiotic therapy did interact with Coumadin. We will avoid quinolone therapy. Imaging studies to her back to evaluate prostamegaly this will also be requested. He may require antibiotic therapy by vein when she returns to the extended care facility.
[2016-05-15] MEDS: LEVOTHYROXINE 100 MCG TAB PO SCH (06:43)
[2016-05-15] MEDS: amLODIPine 5 MG TAB PO SCH (06:43)
[2016-05-15 06:55] LABS: Anisocytosis Slight; CH 22.7; CHCM 28.8; HCT 29.2 % (34.0-46.0); HDW 2.73; HGB 8.6 gm/dL (11.4-16.0); Hypochromasia Marked; MCH 23.4 pg (25.0-35.0); MCHC 29.4 g/dL (31.0-37.0); MCV 79.4 fL (80.0-100.0); Mean Platelet Volume 5.9; RBC 3.68 m/uL (3.80-5.40); RDW 16.1 % (11.5-15.5); WBC 7.3 k/uL (3.8-10.6)
[2016-05-15 07:04] LABS: INR 1.2 (<1.1); Prothrombin Time 12.3 sec (9.0-12.0)
[2016-05-15 07:19] LABS: Anion Gap 11 mmol/L; Blood Urea Nitrogen 12 mg/dL (7-17); Calcium 9.3 mg/dL (8.4-10.2); Carbon Dioxide 21 mmol/L (22-30); Chloride 105 mmol/L (98-107); Glucose 86 mg/dL (74-99); Non-African American GFR(MDRD) >60 (>60 ml/min/1.73 sqM); Potassium 4.6 mmol/L (3.5-5.1); Sodium 137 mmol/L (137-145)
[2016-05-15] MEDS: IPRATROPIUM-ALBUTEROL 3 ML NEB INHALATION SCH ×3 (07:54→19:11)
[2016-05-15] MEDS: ERTAPENEM 1 GM in SODIUM CHLORIDE 0.9% 50 ML IVPB SCH (09:00)
[2016-05-15] MEDS: PREGABALIN 50 MG CAP PO SCH ×2 (09:00→20:10)
[2016-05-15] MEDS: MEGESTROL 400 MG/10 ML CUP PO SCH ×2 (09:00→15:33)
[2016-05-15] MEDS: CARBIDOPA-LEVODOPA 25-100 MG 1 EACH TAB PO SCH ×3 (09:00→22:04)
[2016-05-15] MEDS: POTASSIUM CHLORIDE ER 20 MEQ TAB.ER PO SCH ×2 (09:00→20:10)
[2016-05-15] MEDS: SENNOSIDES-DOCUSATE SODIUM 1 EACH TAB PO SCH ×2 (09:00→15:44)
[2016-05-15] MEDS: MAGNESIUM OXIDE 400 MG TAB PO SCH (09:00)
[2016-05-15] MEDS: LACTOBACILLUS ACIDOPH & BULGAR 1 EACH PACKET PO SCH ×2 (09:00→15:34)
--- NOTE | 2016-05-15 13:28 | NM ---
EXAMINATION TYPE: NM bone 3 phase DATE OF EXAM: 05/15/2016 1:17 PM COMPARISON: 03/18/2014 HISTORY: 80-year-old female with neck and back pain, nonhealing ulcer along the right buttocks and sa cral area, open sore along the thoracic back. TECHNIQUE: Triple phase bone scintigraphy was performed following the injection of27.5 mCi Tc 99m MDP . Immediate images followed by pool images and 4.5 hours post injection images acquired of the thora x and abdomen in multiple projections. FINDINGS: No discrete increased area of flow or pool activity. A degenerated scoliosis is present. Focal increa sed activity is noted along the side of concavity of the mid lumbar spine. No abnormal focal increase d tracer activity along the thoracic spine. IMPRESSION: Degenerative scoliosis with some focal increased activity involving the posterior elements of the rig ht mid lumbar spine suspected to relate to advanced facet arthropathy. Otherwise, no abnormal activit y seen on the flow or pool images or along the thoracic spine on the delayed images. No convincing sc intigraphic evidence for osteomyelitis.
--- NOTE | 2016-05-15 14:56 | P.PN ---
Subjective This is a 80-year-old female patient of Dr. Mohr with a previous medical history significant for hypertension and hypertensive cardiovascular disease, hyperlipidemia, hypothyroidism, parkinsonism, polyneuropathy, history of breast cancer status post right mastectomy. She is currently residing at [facility]. She was sent in to the hospital for evaluation of lethargy and weakness. She had a urinalysis done that was leukoesterase large and bacteria moderate. She was given ciprofloxacin and ceftriaxone and transferred to [facility]. Patient was initially admitted under the care of Dr. riveraion has been transferred to our service. Patient is also noted to have stage III decubitus ulcer in the right buttocks area with tunneling that was present on admission. INR is at 9.4 and patient will be ordered vitamin K. Lactic acid 1.1. Temperature max is 101.4. Previous urine culture was positive for E. coli, ESBL and patient has been started on ertapenem and consult with Dr. Ramirez. 05/15: Patient has been seen in consultation by Dr. Ramirez. Triple phase bone scan has been ordered. Patient is continued on ertapenem. She is on a specialty mattress. Repeat INR this morning is 1.2. Patient will be resumed back on Coumadin. Blood culture showing no growth at 24 hours. Wound and urine cultures are in process. Temperature max 100.3. [facility] She has been hard to arouse today. She did not eat her breakfast and only took half of the Ensure. Objective - Vital Signs Vital signs: Vital Signs Temp 99.4 F 05/15/16 08:00 Pulse 95 05/15/16 08:00 Resp 18 05/15/16 08:00 BP 122/85 05/15/16 08:00 Pulse Ox 94 L 05/15/16 08:00 Intake & Output 05/14/16 05/15/16 05/15/16 18:59 06:59 18:59 Intake Total 1920 750 Output Total 600 1200 Balance 1320 -450 Weight 62 kg 64 kg Intake: IV 1500 750 Ertapenem 1 gm In Sodium 50 Chloride 0.9% 50 ml @ 100 mls/hr IVPB DAILY COUNTS INCLUDE 234 BEDS AT THE [facility] Rx #:[id number] Phytonadione 5 mg In 50 Sodium Chloride 0.9% 50 ml @ 100 mls/hr IVPB ONCE STA Rx#:[id number] Sodium Chloride 0.9% 1, 1400 750 000 ml @ 75 mls/hr IV . [id number] COUNTS INCLUDE 234 BEDS AT THE [facility] Rx#:[id number] Oral 420 Output: Urine 600 1200 Other: Voiding Method Indwelling Catheter Indwelling Catheter - Exam General appearance: average body habitus, mild distress - EENT Eyes: Reports anicteric sclerae, Reports EOMI, Reports PERRLA, Reports normal apperance, Denies photophobia, Denies ptosis ENT: Reports hard of hearing, Reports NA/AT, Reports normal oropharynx, Denies thrush, Denies tonsillar exudates, Denies tonsillar swelling Ears: bilateral: normal, negative: bulging - Neck Neck: Reports normal ROM, Reports rigidity, Denies lymphadenopathy, Denies stridor, Denies thyromegaly Carotids: bilateral: upstroke delayed Thyroid: bilateral: normal size - Respiratory Respiratory: bilateral: diminished, dullness, rhonchi, negative: wheezing, prolonged expiration - Cardiovascular Rhythm: regular Heart sounds: normal: S1, S2 Abnormal Heart Sounds: Reports systolic murmur, Denies rub, Denies S3 Gallop, Denies S4 Gallop, Denies click - Gastrointestinal General gastrointestinal: Reports normal bowel sounds, Reports soft, Denies splenomegaly, Denies tenderness, Denies umbilical hernia, Denies ventral hernia - Integumentary Integumentary: Reports normal, Reports normal turgor, Denies rash, Denies ulcer - Neurologic Neurologic: CNII-XII intact - Musculoskeletal Musculoskeletal: Reports generalized weakness, Reports strength equal bilaterally - Psychiatric Psychiatric: Reports A&O x's 2, mild confusion, Reports appropriate affect, Reports intact judgment & insight - Labs CBC & Chem 7: 05/15/16 06:38 05/15/16 06:38 Labs: Abnormal Lab Results - Last 24 Hours (Table) 05/14/16 05/15/16 05/15/16 Range/Units 15:05 06:38 06:38 RBC 3.68 L (3.80-5.40) m/uL Hgb 8.6 L (11.4-16.0) gm/dL Hct 29.2 L (34.0-46.0) % MCV 79.4 L (80.0-100.0) fL MCH 23.4 L (25.0-35.0) pg MCHC 29.4 L (31.0-37.0) g/dL RDW 16.1 H (11.5-15.5) % PT 21.6 H 12.3 H (9.0-12.0) sec Carbon Dioxide (22-30) mmol/L 05/15/16 Range/Units 06:38 RBC (3.80-5.40) m/uL Hgb (11.4-16.0) gm/dL Hct (34.0-46.0) % MCV (80.0-100.0) fL MCH (25.0-35.0) pg MCHC (31.0-37.0) g/dL RDW (11.5-15.5) % PT (9.0-12.0) sec Carbon Dioxide 21 L (22-30) mmol/L Microbiology - Last 24 Hours (Table) 05/14/16 19:02 Gram Stain - Preliminary Back Wound Culture - Preliminary 05/13/16 22:40 Blood Culture - Preliminary Blood No Growth after 24 hours 05/14/16 10:35 Urine Culture - Preliminary Urine,Catheterized Assessment and Plan Plan: 1. 1. Sepsis and urinary tract infection and possible gram-negative pneumonia presenting with weakness and lethargy, fever, coagulopathy and metabolic encephalopathy. Patient has been started on ertapenem. Consult with Dr. Ramirez and Dr. Sutton. Await urine culture report. Blood culture has status received. 2. Coagulopathy secondary to combination of Coumadin and sepsis. Patient is status post vitamin K. Recheck INR this afternoon. Coumadin will be resumed 3. Anemia of chronic disease. Currently stable. 4. Hypertension and hypertensive cardiovascular disease. Continue losartan 100 mg daily, Norvasc 5 mg daily. 5. Parkinsonism. Continue Sinemet one 3 times daily. 6. History of breast cancer status post right mastectomy. Continue Arimidex 1 mg orally once every day. 7. Hypothyroidism. Continue Synthroid 100 g orally once every day. 8. Bilateral polyneuropathy. Continue Lyrica 50 mg orally twice every day. 9. Osteoporosis/kyphosis with scoliosis. Start [place] 7.5/325 mg 1 tablet every 6 hours as needed. 11. Stage III decubitus ulcer on the right buttocks with tunneling, present on admission. Consult with Dr. Ramirez. Bone scan ordered. Continue ertapenem. Wound culture in process. 12. DVT prophylaxis. Coumadin. 13. GI prophylaxis. Continue Pepcid. Discharge plan: Return to [facility] Impression and plan of care have been directed as dictated by the signing physician. Selene Chan nurse practitioner acting as scribe for signing physician. Time with Patient: Greater than 30
[2016-05-15] MEDS: ANASTROZOLE 1 MG TAB PO SCH (15:34)
[2016-05-15] MEDS: LOSARTAN 50 MG TAB PO SCH (15:38)
[2016-05-15] MEDS: SODIUM CHLORIDE 0.9% 1,000 ML IV SCH ×2 (15:43→22:04)
[2016-05-15] MEDS: METOLAZONE 2.5 MG TAB PO SCH (15:44)
--- NOTE | 2016-05-15 16:18 | P.PN ---
Subjective Principal diagnosis: Acute bilateral pneumonia This is a 80-year-old female with history of multiple medical problems including hypertension, hypothyroidism, Parkinson's disease, polyneuropathy, history of breast cancer and previous right mastectomy, patient was at a resident at [facility], and apparently she was sent to [place] ER with mostly elevated INR/Coumadin related coagulopathy, and she was also noted to have a urinary tract infection and possible sepsis. Apparently the patient was having fevers, upon evaluation in the ER in [place], patient was noted to have urinary tract infection, left lower lobe pneumonia, she was also febrile, her urine revealed evidence of pyuria and bacteriuria, hence arrangements were made for the patient be transferred to [facility]. Patient is a poor historian, however when I asked her about her chief complaint and whether she is complaining of anything, patient felt that she was fine. She had no specific complaints whatsoever. And she had no idea why she was brought to [facility]. Patient was reevaluated today on 05/15/2016, she seems to be very comfortable, in no distress, occasional cough, no wheezing, no chest pain, no fever, no chills, no hemoptysis. Patient had a T-max of 99.4 last night, and bone scan was done to rule out osteomyelitis, and it was negative. No evidence of osteomyelitis in the thoracic spine. And in the lumbar spine. Labs were reviewed today, WBC count is 7.3 hemoglobin is 8.6. Electrolytes are normal renal profile is normal INR is 1.2 today. In the meantime patient remains on ertapenem And she remains on a specialty mattress. Blood cultures are negative so far. One and urine cultures are pending. Objective - Vital Signs Vital signs: Vital Signs Temp 98.9 F 05/15/16 13:47 Pulse 116 H 05/15/16 13:47 Resp 16 05/15/16 13:47 BP 180/81 05/15/16 13:47 Pulse Ox 96 05/15/16 13:47 Intake & Output 05/14/16 05/15/16 05/15/16 18:59 06:59 18:59 Intake Total 1920 750 525 Output Total 600 1200 1200 Balance 1320 450 -675 Weight 62 kg 64 kg Intake: IV 1500 750 525 Ertapenem 1 gm In Sodium 50 Chloride 0.9% 50 ml @ 100 mls/hr IVPB DAILY [facility] Rx #:[id number] Phytonadione 5 mg In 50 Sodium Chloride 0.9% 50 ml @ 100 mls/hr IVPB ONCE [facility] Rx#:[id number] Sodium Chloride 0.9% 1, 1400 750 525 000 ml @ 75 mls/hr IV . [id number] [facility] Rx#:[id number] Oral 420 Output: Urine 600 1200 1200 Uretheral (Oneil) 1200 Other: Voiding Method Indwelling Catheter Indwelling Catheter Indwelling Catheter - Exam Physical Exam: Revealed a 80-year-old female in no distress HEENT:[Neck is supple.] [No neck masses.] [No thyromegaly.] [No JVD.] Chest: [Minimal crackles at the bases bilaterally more so at the left base] Cardiac Exam: [Normal S1 and S2, no S3 gallop, no murmur.] Abdomen: [Soft, nontender, no megaly, no rebound, no guarding, normal bowel sounds.] Extremities: [No clubbing, no edema, no cyanosis.] Patient has a stage III decubitus ulcer in the right sacroiliac area. Neurological Exam: Less confused today, otherwise no focal neurologic deficit. - Labs CBC & Chem 7: 05/15/16 06:38 05/15/16 06:38 Labs: Abnormal Lab Results - Last 24 Hours (Table) 05/15/16 05/15/16 05/15/16 Range/Units 06:38 06:38 06:38 RBC 3.68 L (3.80-5.40) m/uL Hgb 8.6 L (11.4-16.0) gm/dL Hct 29.2 L (34.0-46.0) % MCV 79.4 L (80.0-100.0) fL MCH 23.4 L (25.0-35.0) pg MCHC 29.4 L (31.0-37.0) g/dL RDW 16.1 H (11.5-15.5) % PT 12.3 H (9.0-12.0) sec Carbon Dioxide 21 L (22-30) mmol/L Microbiology - Last 24 Hours (Table) 05/14/16 10:35 Urine Culture - Final Urine,Catheterized 05/14/16 19:02 Gram Stain - Preliminary Back Wound Culture - Preliminary 05/13/16 22:40 Blood Culture - Preliminary Blood No Growth after 24 hours Assessment and Plan Plan: Impression: 1 bi basilar pneumonia, possible gram-negative, and possible sepsis. 2 acute urinary tract infection, possible sepsis 3 history of multiple comorbidities including hypertension, arcus disease, history of breast cancer and previous right mastectomy, history of hypothyroidism, polyneuropathy, hiatal hernia, medical debility and generalized weakness and history of osteoporosis kyphosis scoliosis and history of chronic sacral iliac decubitus ulcer. Recommendation: Agree with the present course of treatment including updrafts, ertapenem, await final report on her cultures including blood and urine cultures. We'll continue to follow. Time with Patient: Less than 30
[2016-05-15] MEDS: METOPROLOL TARTRATE 25 MG TAB PO SCH (17:42)
[2016-05-15] MEDS: CITALOPRAM HYDROBROMIDE 10 MG TAB PO SCH (20:10)
[2016-05-15] MEDS: WARFARIN 3 MG TAB PO SCH (20:11)
[2016-05-16 07:08] LABS: Anisocytosis Slight; CH 22.9; HCT 31.3 % (34.0-46.0); HDW 2.87; HGB 9.5 gm/dL (11.4-16.0); Hypochromasia Marked; MCH 23.4 pg (25.0-35.0); MCHC 30.5 g/dL (31.0-37.0); MCV 76.7 fL (80.0-100.0); Mean Platelet Volume 6.6; Microcytosis Slight; RBC 4.08 m/uL (3.80-5.40); RDW 16.1 % (11.5-15.5); WBC 10.3 k/uL (3.8-10.6)
[2016-05-16 07:13] LABS: INR 1.2 (<1.1); Prothrombin Time 12.4 sec (9.0-12.0)
[2016-05-16 07:26] LABS: Anion Gap 13 mmol/L; Blood Urea Nitrogen 10 mg/dL (7-17); Calcium 9.6 mg/dL (8.4-10.2); Carbon Dioxide 21 mmol/L (22-30); Chloride 100 mmol/L (98-107); Glucose 99 mg/dL (74-99); Non-African American GFR(MDRD) >60 (>60 ml/min/1.73 sqM); Sodium 134 mmol/L (137-145)
[2016-05-16 07:38] LABS: Potassium 4.6 mmol/L (3.5-5.1)
[2016-05-16] MEDS: IPRATROPIUM-ALBUTEROL 3 ML NEB INHALATION SCH ×2 (09:00→19:08)
--- NOTE | 2016-05-16 09:07 | XR ---
EXAMINATION TYPE: XR chest 1V portable DATE OF EXAM: 05/16/2016 8:52 AM HISTORY: Shortness of breath. COMPARISON: 05/14/2016 TECHNIQUE: Single view of the chest is submitted. FINDINGS: Demonstrated are scattered senescent parenchymal change. There is no evidence for focal infiltrate. The heart is stable. Pulmonary venous congestion without overt failure at this time. Hilar and mediastinal structures are within normal limits. Degenerative changes are seen of the dorsal spine. Persistent large fixed hiatal hernia. IMPRESSION: 1. Pulmonary venous congestion without overt failure at this time.
[2016-05-16] MEDS: HYDROcodone/APAP 10-325MG 1 EACH TAB PO PRN (09:23)
[2016-05-16] MEDS: PREGABALIN 50 MG CAP PO SCH ×2 (09:23→21:38)
[2016-05-16] MEDS: CARBIDOPA-LEVODOPA 25-100 MG 1 EACH TAB PO SCH ×3 (09:23→21:37)
[2016-05-16] MEDS: ERTAPENEM 1 GM in SODIUM CHLORIDE 0.9% 50 ML IVPB SCH (09:38)
--- NOTE | 2016-05-16 14:34 | P.DS ---
Providers Date of admission: 05/13/16 18:38 Expected date of discharge: 05/16/16 Attending physician: Angel Mohr Consults: 05/13/16 22:37 Consult Physician Routine Consulting Provider: Florina Sutton Consult Reason/Comments: admit with pneumonia Do you want consulting provider notified?: Yes, Notify in am 05/13/16 22:38 Consult Physician Routine Consulting Provider: Camron Ramirez Consult Reason/Comments: Sepsis Do you want consulting provider notified?: Yes, Notify in am Primary care physician: Angel Mohr [place] [facility] Course: This is a 80-year-old female patient of Dr. Mohr with a previous medical history significant for hypertension and hypertensive cardiovascular disease, hyperlipidemia, hypothyroidism, parkinsonism, polyneuropathy, history of breast cancer status post right mastectomy. She is currently residing at [facility]. She was sent in to the hospital for evaluation of lethargy and weakness. She had a urinalysis done that was leukoesterase large and bacteria moderate. She was given ciprofloxacin and ceftriaxone and transferred to [facility]. Patient was initially admitted under the care of Dr. riveraion has been transferred to our service. Patient is also noted to have stage III decubitus ulcer in the right buttocks area with tunneling that was present on admission. INR is at 9.4 and patient will be ordered vitamin K. Lactic acid 1.1. Temperature max is 101.4. Previous urine culture was positive for E. coli, ESBL and patient has been started on ertapenem and consult with Dr. Ramirez. 05/15: Patient has been seen in consultation by Dr. Ramirez. Triple phase bone scan has been ordered. Patient is continued on ertapenem. She is on a specialty mattress. Repeat INR this morning is 1.2. Patient will be resumed back on Coumadin. Blood culture showing no growth at 24 hours. Wound and urine cultures are in process. Temperature max 100.3. Patient will be transferred to [facility] floor today. She has been hard to arouse today. She did not eat her breakfast and only took half of the Ensure. 05/16: Patient has been afebrile. No new complaints or concerns. Dr. Ramirez as recommended ertapenem at this time knowing that wound culture is showing presumptive staph aureus and gram-negative bacilli which have not been finalized. PICC line has been ordered. Attempts will be made to discharge the patient today if everything didn't be completed. Discharge Diagnoses: 1. Sepsis and infected stage III decubitus ulcer right buttocks, urinary tract infection essentially ruled out and possible gram-negative pneumonia presenting with weakness and lethargy, fever, coagulopathy and metabolic encephalopathy. 2. Coagulopathy secondary to combination of Coumadin and sepsis. 3. Anemia of chronic disease. 4. Hypertension and hypertensive cardiovascular disease. 5. Parkinsonism. 6. History of breast cancer status post right mastectomy. 7. Hypothyroidism. 8. Bilateral polyneuropathy. 9. Osteoporosis/kyphosis with scoliosis. 10. Stage III decubitus ulcer on the right buttocks with tunneling, present on admission. Discharge plan: Return to [facility] Impression and plan of care have been directed as dictated by the signing physician. Selene Chan nurse practitioner acting as scribe for signing physician. Patient Condition at Discharge: Stable Plan - Discharge Summary New Discharge Prescriptions: Ertapenem [INVanz] 1 gm IVPB Q24H #14 bag HYDROcodone/APAP 10-325MG [[place] 10-325] 1 tab PO TID@0600,1300,2100 #120 tab Pregabalin [Lyrica] 50 mg PO BID@0900,2100 #60 cap Discharge Medication List Levothyroxine Sodium [Synthroid] 100 mcg PO DAILY@0600 03/16/14 [History] Sennosides-Docusate Sodium [Senokot-S] 1 tab PO BID@0900,1700 02/27/15 [History] Ipratropium-Albuterol Nebulize [Duoneb 0.5 mg-3 mg/3 ml Soln] 3 ml INHALATION RT -BID@0900,1700 06/08/15 [History] Lactobacillus Capsule 1 cap PO BID@0900,1700 06/08/15 [History] Acetaminophen Tab [Tylenol] 500 mg PO Q6H PRN 05/13/16 [History] Albuterol Nebulized [Ventolin Nebulized] 2.5 mg INHALATION RT-Q8H PRN 05/13/16 [ History] Anastrozole [Arimidex] 1 mg PO DAILY@1300 05/13/16 [History] Bisacodyl [Dulcolax] 10 mg RECTAL DAILY PRN 05/13/16 [History] Carbidopa-Levodopa 25-100 mg [Sinemet 25-100 mg] 1 tab PO TID@0900,1300,2099 [History] Citalopram Hydrobromide [CeleXA] 10 mg PO HS@209905/13/16 [History] Losartan Potassium 100 mg PO DAILY@1300 05/13/16 [History] Magnesium Hydroxide [Milk of Magnesia] 2,400 mg PO DAILY PRN 05/13/16 [History] Magnesium Oxide [Mag-Ox] 400 mg PO DAILY@0905/13/16 [History] Megestrol [Megace] 200 mg PO BID@0900,1700 05/13/16 [History] Metolazone [Zaroxolyn] 2.5 mg PO DAILY@17005/13/16 [History] Ondansetron [Zofran] 4 mg PO Q8H PRN 05/13/16 [History] Polyethylene Glycol 3350 [Miralax] 17 gm PO DAILY@0900 05/13/16 [History] Potassium Chloride ER [K-Dur 10] 20 meq PO BID@0900,209905/13/16 [History] Warfarin [Coumadin] 3 mg PO HS@209905/13/16 [History] amLODIPine [Norvasc] 5 mg PO DAILY@0605/13/16 [History] Ertapenem [INVanz] 1 gm IVPB Q24H #14 bag 05/16/16 [Rx] HYDROcodone/APAP 10-325MG [Stetson 10-325] 1 tab PO TID@0600,1300,2099 #120 tab [Rx] Metoprolol Tartrate [Lopressor] 25 mg PO BID tab 05/16/16 [Rx] Pregabalin [Lyrica] 50 mg PO BID@0900,2099 #60 cap 05/16/16 [Rx] Follow up Appointment(s)/Referral(s): Angel Mohr MD [Primary Care Provider] - 1 Week Ambulatory/Diagnostic Orders: Complete Blood Count w/diff [LAB.AMB] Location: Determined By Patient Comprehensive Metabolic Panel [LAB.AMB] Location: Determined By Patient Prothrombin Time INR [LAB.AMB] Location: Determined By Patient Discharge Disposition: TRANSFER TO SNF/ECF
--- NOTE | 2016-05-16 14:37 | P.PN ---
Subjective This is a 80-year-old female patient of Dr. Mohr with a previous medical history significant for hypertension and hypertensive cardiovascular disease, hyperlipidemia, hypothyroidism, parkinsonism, polyneuropathy, history of breast cancer status post right mastectomy. She is currently residing at [facility]. She was sent in to the hospital for evaluation of lethargy and weakness. She had a urinalysis done that was leukoesterase large and bacteria moderate. She was given ciprofloxacin and ceftriaxone and transferred to [facility]. Patient was initially admitted under the care of Dr. riveraion has been transferred to our service. Patient is also noted to have stage III decubitus ulcer in the right buttocks area with tunneling that was present on admission. INR is at 9.4 and patient will be ordered vitamin K. Lactic acid 1.1. Temperature max is 101.4. Previous urine culture was positive for E. coli, ESBL and patient has been started on ertapenem and consult with Dr. Ramirez. 05/15: Patient has been seen in consultation by Dr. Ramirez. Triple phase bone scan has been ordered. Patient is continued on ertapenem. She is on a specialty mattress. Repeat INR this morning is 1.2. Patient will be resumed back on Coumadin. Blood culture showing no growth at 24 hours. Wound and urine cultures are in process. Temperature max 100.3. Patient will be transferred to [facility] floor today. She has been hard to arouse today. She did not eat her breakfast and only took half of the Ensure. 05/16: Patient has been afebrile. No new complaints or concerns. Dr. Ramirez as recommended ertapenem at this time knowing that wound culture is showing presumptive staph aureus and gram-negative bacilli which have not been finalized. PICC line has been ordered. Attempts will be made to discharge the patient today if everything didn't be completed. Repeat chest x-ray shows venous congestion. Objective - Vital Signs Vital signs: Vital Signs Temp 98.4 F 05/16/16 07:00 Pulse 107 H 05/16/16 07:00 Resp 16 05/16/16 07:00 BP 149/71 05/16/16 07:00 Pulse Ox 97 05/16/16 07:00 Intake & Output 05/15/16 05/16/16 05/16/16 18:59 06:59 18:59 Intake Total 625 675 Output Total 1800 1100 775 Balance -1175 -425 -775 Weight 72.5 kg Intake: IV 525 675 Sodium Chloride 0.9% 1, 525 675 000 ml @ 75 mls/hr IV . [id number] [facility] Rx#:[id number] Oral 100 Output: Urine 1800 1100 775 Uretheral (Oneil) 1800 1100 775 Other: Voiding Method Indwelling Catheter Indwelling Catheter - Exam General appearance: average body habitus, mild distress - EENT Eyes: Reports anicteric sclerae, Reports EOMI, Reports PERRLA, Reports normal apperance, Denies photophobia, Denies ptosis ENT: Reports hard of hearing, Reports NA/AT, Reports normal oropharynx, Denies thrush, Denies tonsillar exudates, Denies tonsillar swelling Ears: bilateral: normal, negative: bulging - Neck Neck: Reports normal ROM, Reports rigidity, Denies lymphadenopathy, Denies stridor, Denies thyromegaly Carotids: bilateral: upstroke delayed Thyroid: bilateral: normal size - Respiratory Respiratory: bilateral: diminished, dullness, rhonchi, negative: wheezing, prolonged expiration - Cardiovascular Rhythm: regular Heart sounds: normal: S1, S2 Abnormal Heart Sounds: Reports systolic murmur, Denies rub, Denies S3 Gallop, Denies S4 Gallop, Denies click - Gastrointestinal General gastrointestinal: Reports normal bowel sounds, Reports soft, Denies splenomegaly, Denies tenderness, Denies umbilical hernia, Denies ventral hernia - Integumentary Integumentary: Reports normal, Reports normal turgor, Denies rash, Denies ulcer - Neurologic Neurologic: CNII-XII intact - Musculoskeletal Musculoskeletal: Reports generalized weakness, Reports strength equal bilaterally - Psychiatric Psychiatric: Reports A&O x's 2, mild confusion, Reports appropriate affect, Reports intact judgment & insight - Labs CBC & Chem 7: 05/16/16 06:46 05/16/16 06:46 Labs: Abnormal Lab Results - Last 24 Hours (Table) 05/16/16 05/16/16 05/16/16 Range/Units 06:46 06:46 06:46 Hgb 9.5 L (11.4-16.0) gm/dL Hct 31.3 L (34.0-46.0) % MCV 76.7 L (80.0-100.0) fL MCH 23.4 L (25.0-35.0) pg MCHC 30.5 L (31.0-37.0) g/dL RDW 16.1 H (11.5-15.5) % Plt Count 490 H (150-450) k/uL PT 12.4 H (9.0-12.0) sec Sodium 134 L (137-145) mmol/L Carbon Dioxide 21 L (22-30) mmol/L Creatinine 0.42 L (0.52-1.04) mg/dL Microbiology - Last 24 Hours (Table) 05/13/16 22:40 Blood Culture - Preliminary Blood No Growth after 48 hours 05/14/16 19:02 Gram Stain - Preliminary Back Wound Culture - Preliminary Presumptive Staph aureus Gram Neg Bacilli 05/14/16 10:35 Urine Culture - Final Urine,Catheterized Assessment and Plan Plan: 1. 1. Sepsis and and infected stage III decubitus ulcer right buttocks, urinary tract infection essentially ruled out with a negative culture and possible gram-negative pneumonia presenting with weakness and lethargy, fever, coagulopathy and metabolic encephalopathy. Patient has been started on ertapenem. Consult with Dr. Ramirez and Dr. Sutton. Await urine culture report. Blood culture has status received. 2. Coagulopathy secondary to combination of Coumadin and sepsis. Patient is status post vitamin K. Recheck INR this afternoon. Coumadin will be resumed 3. Anemia of chronic disease. Currently stable. 4. Hypertension and hypertensive cardiovascular disease. Continue losartan 100 mg daily, Norvasc 5 mg daily. 5. Parkinsonism. Continue Sinemet one 3 times daily. 6. History of breast cancer status post right mastectomy. Continue Arimidex 1 mg orally once every day. 7. Hypothyroidism. Continue Synthroid 100 g orally once every day. 8. Bilateral polyneuropathy. Continue Lyrica 50 mg orally twice every day. 9. Osteoporosis/kyphosis with scoliosis. Start [place] 7.5/325 mg 1 tablet every 6 hours as needed. 11. Stage III decubitus ulcer on the right buttocks with tunneling, present on admission. Consult with Dr. Ramirez. Bone scan ordered. Continue ertapenem. Wound culture in process. 12. DVT prophylaxis. Coumadin. 13. GI prophylaxis. Continue Pepcid. Discharge plan: Return to [facility] Impression and plan of care have been directed as dictated by the signing physician. Selene Chan nurse practitioner acting as scribe for signing physician. Time with Patient: Greater than 30
[2016-05-16] MEDS ORDERED: LIDOCAINE 2% INJ 20 MG/ML SQ ONE (16:04)
--- NOTE | 2016-05-16 16:17 | P.PN ---
Subjective This is a 80-year-old female with history of multiple medical problems including hypertension, hypothyroidism, Parkinson's disease, polyneuropathy, history of breast cancer and previous right mastectomy, patient was at a resident at [facility], and apparently she was sent to [place] ER with mostly elevated INR/Coumadin related coagulopathy, and she was also noted to have a urinary tract infection and possible sepsis. Apparently the patient was having fevers, upon evaluation in the ER in [place], patient was noted to have urinary tract infection, left lower lobe pneumonia, she was also febrile, her urine revealed evidence of pyuria and bacteriuria, hence arrangements were made for the patient be transferred to [facility]. Patient is a poor historian, however when asked her about her chief complaint and whether she is complaining of anything, patient felt that she was fine. She had no specific complaints whatsoever. And she had no idea why she was brought to [facility]. She is seen again today 05/16/2016 on the surgical floor. She is sitting up in the chair at the bedside. She denies any worsening shortness of breath, cough or congestion. She's currently afebrile. Maintain O2 saturations in the 90s on room air. A PICC line is to be inserted. She does have presumptive staph aureus and gram-negative bacilli in her wound culture from her back. She is currently on ertapenem. Objective - Vital Signs Vital signs: Vital Signs Temp 98.4 F 05/16/16 07:00 Pulse 107 H 05/16/16 07:00 Resp 16 05/16/16 07:00 BP 149/71 05/16/16 07:00 Pulse Ox 97 05/16/16 07:00 Intake & Output 05/15/16 05/16/16 05/16/16 18:59 06:59 18:59 Intake Total 625 675 Output Total 1800 1100 775 Balance -3119 -708 -635 Weight 72.5 kg Intake: IV 525 675 Sodium Chloride 0.9% 1, 525 675 000 ml @ 75 mls/hr IV . [id number] COUNTS INCLUDE 234 BEDS AT THE [facility] Rx#:[id number] Oral 100 Output: Urine 1800 1100 775 Uretheral (Oneil) 1800 1100 775 Other: Voiding Method Indwelling Catheter Indwelling Catheter - Exam GENERAL EXAM: Alert, comfortable in no apparent distress. HEAD: Normocephalic. EYES: Normal reaction of pupils, equal size. NOSE: Clear with pink turbinates. THROAT: No erythema or exudates. NECK: No masses, no JVD. CHEST: No chest wall deformity. LUNGS: Equal air entry with no crackles, wheeze, rhonchi or dullness. CVS: S1 and S2 normal with no audible murmurs, regular rhythm. ABDOMEN: No hepatosplenomegaly, normal bowel sounds, no guarding or rigidity. Extremities: There is no significant peripheral edema. No clubbing, no cyanosis. Peripheral pulses are intact. - Labs CBC & Chem 7: 05/16/16 06:46 05/16/16 06:46 Labs: Abnormal Lab Results - Last 24 Hours (Table) 05/16/16 05/16/16 05/16/16 Range/Units 06:46 06:46 06:46 Hgb 9.5 L (11.4-16.0) gm/dL Hct 31.3 L (34.0-46.0) % MCV 76.7 L (80.0-100.0) fL MCH 23.4 L (25.0-35.0) pg MCHC 30.5 L (31.0-37.0) g/dL RDW 16.1 H (11.5-15.5) % Plt Count 490 H (150-450) k/uL PT 12.4 H (9.0-12.0) sec Sodium 134 L (137-145) mmol/L Carbon Dioxide 21 L (22-30) mmol/L Creatinine 0.42 L (0.52-1.04) mg/dL Microbiology - Last 24 Hours (Table) 05/13/16 22:40 Blood Culture - Preliminary Blood No Growth after 48 hours 05/14/16 19:02 Gram Stain - Preliminary Back Wound Culture - Preliminary Presumptive Staph aureus Gram Neg Bacilli 05/14/16 10:35 Urine Culture - Final Urine,Catheterized Assessment and Plan Plan: Impression: #1 Bibasilar pneumonia, suspect gram-negative with possible sepsis. #2 Stage III decubitus ulcer of the right buttock positive for presumed Staphylococcus aureus and gram-negative bacilli. #3 Hypertension. #4 History of breast cancer right mastectomy. #5 Hyper hypothyroidism. #6 Polyneuropathy. #7 Hiatal hernia. #8 Osteoporosis. #Kyphosis. #10 Plan: The patient was seen and evaluated by Dr. Sutton. She is cleared for discharge from the pulmonary standpoint. Infectious diseases on the case and is planning to discharge her on ertapenem. A PICC line is to be placed. In the interim we' ll continue her current medications. We'll continue to follow make further recommendations based on her clinical standpoint.
--- NOTE | 2016-05-16 16:56 | IR ---
EXAMINATION TYPE: IR cvc insert >=5 years DATE OF EXAM: 05/16/2016 4:35 PM COMPARISON: NONE CLINICAL HISTORY: Infection Needs long-term intravenous access for antibiotics. PROCEDURE: After informed consent, the skin overlying the left brachial vein was localized with ultrasound and n oted to be compressible and patent. An ultrasound image was obtained and submitted on the patient's chart. The overlying skin was prepped and draped and Lidocaine was used for local anesthesia. A ski n kamran was made with a scalpel. Access was gained to the vein under ultrasound guidance with a 21 ga uge needle and a 0.018 inch wire was advanced. Access site was dilated with Peel-Away sheath and cat heter tailored to the appropriate length and advanced such that the distal tip is at the cavoatrial j unction. Spot image was obtained verifying placement. Catheter was fixed to the skin with suture an d a sterile dressing was placed following hemostasis. Catheter was aspirated and flushed with saline . Patient was discharged in stable condition without complication. Maximal barrier technique is util ized. Ultrasound image is documented on the chart. Ultrasound used with sterile technique. Fluoro time and fluoroscopic images submitted to document procedure: 0.1 minutes fluoroscopy time, 22 intraoperative C-arm images IMPRESSION: STATUS POST ULTRASOUND AND FLUOROSCOPIC GUIDED PICC LINE PLACEMENT, READY FOR USE. THIS PROCEDURE WAS PERFORMED BY THE UNDERSIGNED.
[2016-05-16] MEDS: MEGESTROL 400 MG/10 ML CUP PO SCH ×2 (17:48→18:47)
[2016-05-16] MEDS: METOPROLOL TARTRATE 25 MG TAB PO SCH ×2 (17:48→21:37)
[2016-05-16] MEDS: LOSARTAN 50 MG TAB PO SCH (18:44)
[2016-05-16] MEDS: LACTOBACILLUS ACIDOPH & BULGAR 1 EACH PACKET PO SCH ×2 (18:44→18:48)
[2016-05-16] MEDS: LEVOTHYROXINE 100 MCG TAB PO SCH (18:45)
[2016-05-16] MEDS: amLODIPine 5 MG TAB PO SCH (18:45)
[2016-05-16] MEDS: MAGNESIUM OXIDE 400 MG TAB PO SCH (18:45)
[2016-05-16] MEDS: POTASSIUM CHLORIDE ER 20 MEQ TAB.ER PO SCH ×2 (18:45→21:37)
[2016-05-16] MEDS: ANASTROZOLE 1 MG TAB PO SCH (18:46)
[2016-05-16] MEDS: SENNOSIDES-DOCUSATE SODIUM 1 EACH TAB PO SCH ×2 (18:47→18:48)
[2016-05-16] MEDS: SODIUM CHLORIDE 0.9% 1,000 ML IV SCH (18:47)
[2016-05-16] MEDS: METOLAZONE 2.5 MG TAB PO SCH (21:37)
[2016-05-16] MEDS: CITALOPRAM HYDROBROMIDE 10 MG TAB PO SCH (21:37)
[2016-05-16] MEDS: WARFARIN 3 MG TAB PO SCH (21:38)
--- NOTE | 2016-05-17 00:23 | P.PN ---
Subjective Principal diagnosis: sepsis This is a 80-year-old female currently residing at [facility]. She was sent in to the hospital for evaluation of lethargy and weakness. She had a urinalysis done that was leukoesterase large and bacteria moderate. Chest x-ray showed left lower lobe pneumonia. CAT scan of the brain was negative. She was given ciprofloxacin and ceftriaxone and transferred to [facility]. Patient is also noted to have stage III decubitus ulcer in the right buttocks area with tunneling that was present on admission. INR is at 9.4 and patient received vitamin K. Lactic acid 1.1. Temperature max is 101.4. Previous urine culture was positive for E. coli, ESBL and patient on ertapenem. improved today Objective - Vital Signs Vital signs: Vital Signs Temp 97.2 F L 05/16/16 19:47 Pulse 100 05/16/16 19:17 Resp 16 05/16/16 19:47 BP 140/70 05/16/16 19:47 Pulse Ox 95 05/16/16 19:47 Intake & Output 05/16/16 05/16/16 05/17/16 06:59 18:59 06:59 Intake Total 675 Output Total 1100 1375 Balance -425 -1375 Weight 72.5 kg Intake: IV 675 Sodium Chloride 0.9% 1, 675 000 ml @ 75 mls/hr IV . [id number] Rx#:[id number] Output: Urine 1100 1375 Uretheral (Oneil) 1100 775 Other: Voiding Method Indwelling Catheter Indwelling Catheter # Bowel Movements 2 - Exam Gen: This is a 80-year-old female. She appears to be in no acute distress.. HEENT: Head is atraumatic, normocephalic. Pupils equal, round. Sclerae is anicteric. NECK: Supple. No JVD. No lymphadenopathy. No thyromegaly. LUNGS: Crackles in the bases. No intercostal retractions. HEART: Regular rate and rhythm. Systolic murmur. ABDOMEN: Soft. Bowel sounds are present. No masses. No tenderness. Oneil catheter in place. SKIN: Stage III pressure ulcer right lower back area. EXTREMITIES: No pedal edema. No calf tenderness. NEUROLOGICAL: Patient is awake, alert and oriented x2 with mild confusion. No focal neural deficits. - Labs CBC & Chem 7: 05/16/16 06:46 05/16/16 06:46 Labs: Abnormal Lab Results - Last 24 Hours (Table) 05/16/16 05/16/16 05/16/16 Range/Units 06:46 06:46 06:46 Hgb 9.5 L (11.4-16.0) gm/dL Hct 31.3 L (34.0-46.0) % MCV 76.7 L (80.0-100.0) fL MCH 23.4 L (25.0-35.0) pg MCHC 30.5 L (31.0-37.0) g/dL RDW 16.1 H (11.5-15.5) % Plt Count 490 H (150-450) k/uL PT 12.4 H (9.0-12.0) sec Sodium 134 L (137-145) mmol/L Carbon Dioxide 21 L (22-30) mmol/L Creatinine 0.42 L (0.52-1.04) mg/dL Microbiology - Last 24 Hours (Table) 05/14/16 19:02 Gram Stain - Preliminary Back Wound Culture - Preliminary Staphylococcus aureus Escherichia coli 05/13/16 22:40 Blood Culture - Preliminary Blood No Growth after 48 hours Laboratory Results WBC 10.3 k/uL (3.8-10.6) 05/16/16 06:46 RBC 4.08 m/uL (3.80-5.40) 05/16/16 06:46 Hgb 9.5 gm/dL (11.4-16.0) L 05/16/16 06:46 Hct 31.3 % (34.0-46.0) L 05/16/16 06:46 MCV 76.7 fL (80.0-100.0) L 05/16/16 06:46 MCH 23.4 pg (25.0-35.0) L 05/16/16 06:46 MCHC 30.5 g/dL (31.0-37.0) L 05/16/16 06:46 RDW 16.1 % (11.5-15.5) H 05/16/16 06:46 Plt Count 490 k/uL (150-450) H 05/16/16 06:46 Neutrophils % 77 % 05/14/16 06:04 Lymphocytes % 7 % 05/14/16 06:04 Monocytes % 9 % 05/14/16 06:04 Eosinophils % 5 % 05/14/16 06:04 Basophils % 0 % 05/14/16 06:04 Neutrophils # 5.8 k/uL (1.3-7.7) 05/14/16 06:04 Lymphocytes # 0.5 k/uL (1.0-4.8) L 05/14/16 06:04 Monocytes # 0.7 k/uL (0-1.0) 05/14/16 06:04 Eosinophils # 0.4 k/uL (0-0.7) 05/14/16 06:04 Basophils # 0.0 k/uL (0-0.2) 05/14/16 06:04 Hypochromasia Marked 05/16/16 06:46 Anisocytosis Slight 05/16/16 06:46 Microcytosis Slight 05/16/16 06:46 PT 12.4 sec (9.0-12.0) H 05/16/16 06:46 INR 1.2 (<1.1) 05/16/16 06:46 Sodium 134 mmol/L (137-145) L 05/16/16 06:46 Potassium 4.6 mmol/L (3.5-5.1) 05/16/16 06:46 Chloride 100 mmol/L (98-107) 05/16/16 06:46 Carbon Dioxide 21 mmol/L (22-30) L 05/16/16 06:46 Anion Gap 13 mmol/L 05/16/16 06:46 BUN 10 mg/dL (7-17) 05/16/16 06:46 Creatinine 0.42 mg/dL (0.52-1.04) L 05/16/16 06:46 Est GFR (MDRD) Af Amer >60 (>60 ml/min/1.73 sqM) 05/16/16 06:46 Est GFR (MDRD) Non-Af >60 (>60 ml/min/1.73 sqM) 05/16/16 06:46 Glucose 99 mg/dL (74-99) 05/16/16 06:46 Plasma Lactic Acid [place] 1.1 mmol/L (0.7-2.0) 05/14/16 11:23 Calcium 9.6 mg/dL (8.4-10.2) 05/16/16 06:46 Magnesium 1.8 mg/dL (1.6-2.3) 05/14/16 06:04 Urine Color Yellow 05/14/16 02:39 Urine Appearance Cloudy (Clear) H 05/14/16 02:39 Urine pH 5.5 (5.0-8.0) 05/14/16 02:39 Ur Specific [place] 1.017 (1.001-1.035) 05/14/16 02:39 Urine Protein 1+ (Negative) H 05/14/16 02:39 Urine Glucose (UA) Negative (Negative) 05/14/16 02:39 Urine Ketones Negative (Negative) 05/14/16 02:39 Urine Blood Moderate (Negative) H 05/14/16 02:39 Urine Nitrate Negative (Negative) 05/14/16 02:39 Urine Bilirubin Negative (Negative) 05/14/16 02:39 Urine Urobilinogen <2.0 mg/dL (<2.0) 05/14/16 02:39 Ur Leukocyte Esterase Large (Negative) H 05/14/16 02:39 Urine RBC 30 /hpf (0-5) H 05/14/16 02:39 Urine WBC 134 /hpf (0-5) H 05/14/16 02:39 Urine Bacteria Occasional /hpf (None) H 05/14/16 02:39 Urine Mucus Rare /hpf (None) H 05/14/16 02:39 Microbiology 05/14/16 19:02 Back Gram Stain - Preliminary 05/14/16 19:02 Back Wound Culture - Preliminary Staphylococcus aureus Escherichia coli 05/13/16 22:40 Blood Blood Culture - Preliminary No Growth after 48 hours 05/14/16 10:35 Urine,Catheterized Urine Culture - Final Assessment and Plan (1) Decubitus ulcer of back, stage 3 Narrative/Plan: 80-year-old who presents to Hospital of multiple medical troubles. Evidence of an ESBL urinary tract infection. Also has evidence of an extensive ulceration which is a stage III pressure ulceration to her lower back. Also going the ESBL E. coli but also with a staph species. Has not been characterized as MSSA. Possibly would continue the ertapenem therapy and will need this for home. Will do well to have a surgical evaluation at this time now that she has been stabilized. May need a surgical debridement to the area to allow it to heal. Depending on its size after debridement may be a candidate for negative pressure therapy system. Will do well to have a air mattress at her next residence. the extensive coagulopathy has resolved. Status: Acute (2) Fever Status: Acute (3) Infection due to ESBL-producing Escherichia coli Status: Acute (4) Infection due to ESBL-producing Escherichia coli Status: Acute
[2016-05-17] MEDS: amLODIPine 5 MG TAB PO SCH (05:15)
[2016-05-17] MEDS: LEVOTHYROXINE 100 MCG TAB PO SCH (05:15)
[2016-05-17] MEDS: SODIUM CHLORIDE 0.9% 1,000 ML IV SCH (05:15)
[2016-05-17 07:24] LABS: Anisocytosis Slight; CHCM 30.2; HCT 32.2 % (34.0-46.0); HDW 2.82; Hypochromasia Marked; MCH 23.6 pg (25.0-35.0); MCHC 30.9 g/dL (31.0-37.0); MCV 76.2 fL (80.0-100.0); Mean Platelet Volume 6.1; Microcytosis Slight; RBC 4.22 m/uL (3.80-5.40); RDW 16.2 % (11.5-15.5); WBC 11.6 k/uL (3.8-10.6)
[2016-05-17 07:29] LABS: INR 1.8 (<1.1)
[2016-05-17] MEDS: IPRATROPIUM-ALBUTEROL 3 ML NEB INHALATION SCH (07:31)
[2016-05-17 07:33] LABS: Anion Gap 13 mmol/L; Blood Urea Nitrogen 13 mg/dL (7-17); Calcium 9.6 mg/dL (8.4-10.2); Carbon Dioxide 23 mmol/L (22-30); Chloride 100 mmol/L (98-107); Glucose 102 mg/dL (74-99); Non-African American GFR(MDRD) >60 (>60 ml/min/1.73 sqM); Potassium 4.3 mmol/L (3.5-5.1); Sodium 136 mmol/L (137-145)
[2016-05-17] MEDS: MEGESTROL 400 MG/10 ML CUP PO SCH (08:10)
[2016-05-17] MEDS: CARBIDOPA-LEVODOPA 25-100 MG 1 EACH TAB PO SCH ×2 (08:10→15:12)
[2016-05-17] MEDS: LACTOBACILLUS ACIDOPH & BULGAR 1 EACH PACKET PO SCH (08:10)
[2016-05-17] MEDS: METOPROLOL TARTRATE 25 MG TAB PO SCH (08:10)
[2016-05-17] MEDS: MAGNESIUM OXIDE 400 MG TAB PO SCH (08:10)
[2016-05-17] MEDS: PREGABALIN 50 MG CAP PO SCH (08:12)
[2016-05-17] MEDS: POTASSIUM CHLORIDE ER 20 MEQ TAB.ER PO SCH (08:12)
[2016-05-17] MEDS: ERTAPENEM 1 GM in SODIUM CHLORIDE 0.9% 50 ML IVPB SCH (08:15)
[2016-05-17] MEDS: SENNOSIDES-DOCUSATE SODIUM 1 EACH TAB PO SCH ×2 (08:15→15:13)
[2016-05-17 14:26] VITALS: BMI 26.2
[2016-05-17 14:47] VITALS: BP 148/74; PULSE 96; RESP 16; TEMP 99.3
[2016-05-17] MEDS: ANASTROZOLE 1 MG TAB PO SCH (15:12)
[2016-05-17] MEDS: LOSARTAN 50 MG TAB PO SCH (15:12)
--- NOTE | 2016-05-17 19:30 | PN ---
INTERVAL HISTORY: Patient continued to be at baseline mental status, lethargic and no acute distress. Discharge order was placed yesterday without any response from the case management staff and when asked today about the reason for not being discharged, nobody was able to answer that question. PHYSICAL EXAMINATION: VITAL SIGNS: Temperature 98.3, heart rate of 96, respiratory rate 16, blood pressure 148/74 and saturation is 93% on room. LUNGS: Diminished bilaterally. HEART: S1, S2. ABDOMEN: Soft, nontender. Positive bowel sounds in all 4 quadrants. SKIN: No new rash. PSYCH: As above. IMAGING AND LABS: CBC revealed a white blood count 11.6, hemoglobin at 10. Sodium slightly low at 136 and normal glucose. Wound culture is positive for Staph aureus, E. coli and Enterococcus faecalis. Blood cultures are still negative. ASSESSMENT AND PLAN: 1. Decubitus ulcer of the back, stage III. Patient seems to be stabilizing and improving with multiple bacteria, including extended-spectrum beta-lactamase. Patient was evaluated by Infectious Disease, who felt that the patient is stable for discharge and recommendation for negative pressure therapy, air mattress and continuation of current antibiotics. 2. Anemia, seems to be stable. We will continue monitoring. 3. Hypertension under fair control. 4. Parkinson's. Will continue Sinemet. 5. History of breast cancer, stable. 6. Discharge planning to extended care facility when arrangements are done by the case management.
== END 2016-05-17 18:09 | DRG 871 ==
LOC: 6SEL 18:38 → 3SUR 05-15 13:01
PROVIDERS: ADMIT Internal Medicine; ATTEND Internal Medicine
PROC: B548ZZA Ultrasonography of Superior Vena Cava, Guidance (ICD-10-PCS; principal; 2016-05-16 15:47)
PROC: 02HV33Z Insertion of Infusion Device into Superior Vena Cava, Percutaneous Approach (ICD-10-PCS; principal; 2016-05-16 15:47)
DX: A41.9 Sepsis, unspecified organism (principal); G93.41 Metabolic encephalopathy; L89.313 Pressure ulcer of right buttock, stage 3; J18.9 Pneumonia, unspecified organism; G20 Parkinson's disease; G62.9 Polyneuropathy, unspecified; I11.9 Hypertensive heart disease without heart failure; M41.9 Scoliosis, unspecified; D63.8 Anemia in other chronic diseases classified elsewhere; B96.20 Unspecified Escherichia coli [E. coli] as the cause of diseases classified elsewhere; E03.9 Hypothyroidism, unspecified; E78.5 Hyperlipidemia, unspecified; K21.9 Gastro-esophageal reflux disease without esophagitis; K44.9 Diaphragmatic hernia without obstruction or gangrene; M19.90 Unspecified osteoarthritis, unspecified site; M81.0 Age-related osteoporosis without current pathological fracture; R79.1 Abnormal coagulation profile; T45.515A Adverse effect of anticoagulants, initial encounter; Z96.1 Presence of intraocular lens; Z16.12 Extended spectrum beta lactamase (ESBL) resistance; Z85.3 Personal history of malignant neoplasm of breast; Z90.11 Acquired absence of right breast and nipple
CPT/HCPCS: 36569; 71010; 71020; 76937; 77001; 78315; 80048; 81001; 83605; 83735; 85025; 85027; 85610; 87040; 87070; 87077; 87086; 87186; 87205; 93005; 94640; 94760